=== PATIENT | male | born 1980 | race African-American/Black ===

== ENCOUNTER 2020-01-26 23:09 | Emergency (ER) | payer BC, OTHER ==
[2020-01-26 23:15] VITALS: BP 172/89; PULSE 93; RESP 20; TEMP 98.1
== END 2020-01-27 00:01 ==
LOC: EC 23:09
DX: Z02.89 Encounter for other administrative examinations (principal)
CPT/HCPCS: 99499

== ENCOUNTER → 2020-09-29 | Outpatient (CLI) | payer BC | END | disposition home or self-care (01) | LOC: LABWHC1 16:33 | PROVIDERS: ATTEND Emergency Medicine | DX: Z20.822 Contact with and (suspected) exposure to COVID-19 (principal) | CPT/HCPCS: U0003; C9803; U0005 ==

== ENCOUNTER → 2021-03-12 | Outpatient (CLI) | payer OTHER ==
--- NOTE | 2021-03-12 16:33 | XR ---
Right forearm, right wrist, right elbow HISTORY: S63.501A,S56.511.A 2 views of the right forearm, 4 views of the right wrist, 3 views right elbow Bone mineralization, joint spaces and alignment are maintained. Within the right forearm There is a p robable enthesophyte at the insertion of triceps tendon which is well-corticated and not felt likely to be acute but is minimally displaced from the posterior proximal ulna. In the wrist, sclerosis is p resent at the proximal aspect of the lunate bone with a cystic focus possibly related to positive uln ar variance. There may be some limited osteoarthritic change or osteonecrosis at this level. The right elbow shows no joint effusion. IMPRESSION: Findings at the level of the lunate bone as described, positive ulnar variance, wrist MRI may be of benefit as indicated. No acute fracture or dislocation is evident.
== END | disposition home or self-care (01) ==
LOC: RADXRMAIN 15:46
PROVIDERS: ATTEND Emergency Medicine
DX: M25.531 Pain in right wrist (principal)

== ENCOUNTER → 2021-03-16 | Outpatient (CLI) | payer OTHER ==
--- NOTE | 2021-03-17 05:18 | MR ---
EXAMINATION TYPE: MR wrist RT wo con DATE OF EXAM: 03/16/2021 COMPARISON: None HISTORY: Sprain right wrist 1 week ago. Multiplanar multiecho imaging of the right wrist without contrast. The intercarpal joint spaces are fairly normal. There is 5 mm rounded area of increased signal on the T2 images in the proximal lunate consistent with a degenerative cyst. There is some increased signal on the T2 images in the distal triquetrum consistent with a bone bruise. No fracture line seen. The distal radius and ulna appear intact. Triangular cartilage appears intact. There is no evidence of ca rpal bone fracture. The collateral ligaments appear intact. There is no evidence of ligament or tendo n tear. IMPRESSION: There is evidence of a bone bruise in the distal triquetrum. 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 No fracture.
== END | disposition home or self-care (01) ==
LOC: RADMRIMAIN 14:01
PROVIDERS: ATTEND Emergency Medicine
DX: M85.6 Other cyst of bone (principal)

== ENCOUNTER → 2021-03-19 | Outpatient (CLI) | payer OTHER ==
--- NOTE | 2021-03-19 10:48 | XR ---
Right elbow HISTORY: Trauma 10 days prior and pain 3 views of the right elbow correlated prior exam 03/12/2021 There is no significant interval change. There is no elbow joint effusion. Small ossific density pres ent proximal to the insertion of the triceps tendon is smoothly marginated and stable. IMPRESSION: No acute fracture or dislocation.
== END | disposition home or self-care (01) ==
LOC: RADXRMAIN 10:02
PROVIDERS: ATTEND Emergency Medicine
DX: S56.511D Strain of other extensor muscle, fascia and tendon at forearm level, right arm, subsequent encounter (principal); X58.XXXD Exposure to other specified factors, subsequent encounter